=== PATIENT | female | born 2000 | race African-American/Black ===

== ENCOUNTER 2019-02-20 20:21 | Emergency (ER) | payer MEDICAID ==
[~2019-02-20] VITALS: Ht 165.1 cm; Wt 84.8 kg
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
[2019-02-20 20:42] VITALS: BP 116/71
[2019-02-20] MEDS ORDERED: Methocarbamol 750mg tab ORAL ONE (20:45)
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
[2019-02-20] MEDS ORDERED: IBUPROFEN600 MG ORAL (21:01)
[2019-02-20] MEDS ORDERED: ROBAXIN-750750 MG PO (21:01)
[2019-02-20 21:05] VITALS: BP 118/96
--- NOTE | 2019-02-20 21:05 | NUR ---
ED Nurse Note: pt cleared to be d/c per ERMD, pt discharge and aftercare instruction w/ prescription provided, pt advised to follow up with pcp or return to ed if changes in condition, pt verbalized understanding and agrees with plan, vss, ambulatory w/ steady gait, left w/ all belongings, pt accompanied by family member.
== END 2019-02-20 21:05 | disposition home or self-care (01) ==
LOC: EMR 20:52
DX: S13.4XXA Sprain of ligaments of cervical spine, initial encounter (principal); S33.5XXA Sprain of ligaments of lumbar spine, initial encounter; V43.52XA Car driver injured in collision with other type car in traffic accident, initial encounter; Y92.414 Local residential or business street as the place of occurrence of the external cause
CPT/HCPCS: 99282

== ENCOUNTER 2019-09-12 15:54 | Emergency (ER) | payer MEDICAID ==
[~2019-09-12] VITALS: Ht 165.1 cm; Wt 79.8 kg
[~2019-09-12 15:54] MED LIST: IBUPROFEN600 MG ORAL; ROBAXIN-750750 MG PO
[2019-09-12 16:01] VITALS: BP 113/72
[2019-09-12] MEDS ORDERED: NKM (16:07)
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
[2019-09-12] MEDS ORDERED: ROBAXIN-750750 MG PO (17:15)
[2019-09-12] MEDS ORDERED: ACETAMINOPHEN-1 EAC1 ORAL (17:15)
[2019-09-12] MEDS ORDERED: LIDODERM700 M1 TOPIC (17:15)
--- NOTE | 2019-09-12 17:19 | Diagnostic Imaging Report ---
EXAM: XR Left Shoulder Complete, 2 or More Views CLINICAL HISTORY: PAIN TECHNIQUE: Two or more views of the left shoulder. COMPARISON: No relevant prior studies available. FINDINGS: Bones/joints: Unremarkable. No acute fracture. No dislocation. Soft tissues: Unremarkable. IMPRESSION: Normal left shoulder x-rays.
[2019-09-12 17:29] VITALS: BP 125/70
--- NOTE | 2019-09-12 17:29 | NUR ---
ER DISCHARGE NOTE: Patient is cleared to be discharged per PA, pt is aox4, on room air, with stable vital signs. pt was given dc and prescription instructions, pt was able to verbalize understanding, pt id band removed. pt is able to ambulate with steady gait. pt took all belongings and left with her friend.
== END 2019-09-12 17:29 | disposition home or self-care (01) ==
LOC: EMR 17:15
DX: S46.812A Strain of other muscles, fascia and tendons at shoulder and upper arm level, left arm, initial encounter (principal); S16.1XXA Strain of muscle, fascia and tendon at neck level, initial encounter; V43.52XA Car driver injured in collision with other type car in traffic accident, initial encounter; Y92.410 Unspecified street and highway as the place of occurrence of the external cause; Z91.013 Allergy to seafood
CPT/HCPCS: 73030; Z7502; 99283